=== PATIENT | female | born 1990 | race American Indian/Alaskan Native ===

== ENCOUNTER 2017-09-24 22:06 | Emergency (ER) | payer SELFPAY ==
[2017-09-25] MEDS ORDERED: PERCOCET 5/325 ONE (00:36)
[2017-09-25] MEDS ORDERED: PERCOCET 5/325 PO ONE (00:41)
--- NOTE | 2017-09-25 00:55 | XRay Report ---
FINAL REPORT EXAM: XR HAND 3+V RT HISTORY: Dog bite Rt Hand, Concent signed, get report TECHNIQUE: Three views of the right hand were submitted. FINDINGS: There is soft tissue swelling adjacent to the proximal phalanx of the thumb. There is no evidence of fracture or radiopaque foreign body. The wrist joint is well maintained. IMPRESSION: Soft tissue swelling adjacent to the proximal phalanx of the thumb. No associated fracture.
[2017-09-25 01:18] VITALS: BP 118/77
[2017-09-25] MEDS ORDERED: AUGMENTIN 875 MG PO ONE (01:24)
[2017-09-25] MEDS ORDERED: BOOSTRIX IM ONE (01:24)
--- NOTE | 2017-09-25 01:26 | Emergency Department Report ---
ED Animal Bite HPI - General Chief Complaint: Animal Bite Stated Complaint: DOG BITE Time Seen by Provider: 09/25/17 01:21 Source: patient Mode of arrival: Ambulatory Limitations: No Limitations - History of Present Illness Initial Comments: 27-year-old -[place]an female comes in status post bitten by a pit bull. The dog was a friend's. The friend reports that the dog is up-to-date on all vaccines. Patient does not recall when the last time she had a tetanus shot. Patient reports her pain a 10 out of 10. Patient has no past medical history currently taking no medication has no known drug allergies. MD Complaint: animal bite -: This evening Right: Hand (webspace between the first and thumb digit, ring finger) Animal: dog Description: household pet Mechanism: bite Pain Description: sharp, burning Severity scale (0 -10): 10 Context: unprovoked Associated Symptoms: erythema, bleeding - Related Data Patient Tetanus UTD: No Previous Rx's Medication Instructions Recorded Last Taken Type Azithromycin [Zithromax TAB] 500 mg PO ONCE #2 tablet 05/07/13 Unknown Rx Ciprofloxacin HCl [Cipro] 500 mg PO Q12H #20 tab 05/07/13 Unknown Rx Fluconazole [Diflucan] 150 mg PO QDAY #1 tablet 05/07/13 Unknown Rx Amoxicillin/K Clav Tab [Augmentin 1 each PO BID #20 tablet 09/25/17 Unknown Rx 875MG TAB] HYDROcodone/ACETAMINOPHEN [[place] 1 each PO Q6H PRN #12 tablet 09/25/17 Unknown Rx 7.5-325 Tablet] Allergies Allergy/AdvReac Type Severity Reaction Status Date / Time No Known Allergies Allergy Unverified 05/07/13 11:49 ED Review of Systems ROS: Stated complaint: DOG BITE Other details as noted in HPI Constitutional: denies: chills, fever Eyes: denies: eye pain, eye discharge, vision change ENT: denies: ear pain, throat pain Respiratory: denies: cough, shortness of breath, wheezing Cardiovascular: denies: chest pain, palpitations Endocrine: no symptoms reported Gastrointestinal: denies: abdominal pain, nausea, diarrhea Genitourinary: denies: urgency, dysuria, discharge Musculoskeletal: denies: back pain, joint swelling, arthralgia Skin: other (laceration to the right hand) Neurological: denies: headache, weakness, paresthesias Psychiatric: denies: anxiety, depression Hematological/Lymphatic: denies: easy bleeding, easy bruising ED Past Medical Hx - Past Medical History Previous Medical History?: No - Surgical History Past Surgical History?: No - Social History Smoking Status: Current Every Day Smoker Substance Use Type: Alcohol - Medications Home Medications: Home Medications Medication Instructions Recorded Confirmed Last Taken Type Azithromycin [Zithromax TAB] 500 mg PO ONCE #2 tablet 05/07/13 Unknown Rx Ciprofloxacin HCl [Cipro] 500 mg PO Q12H #20 tab 05/07/13 Unknown Rx Fluconazole [Diflucan] 150 mg PO QDAY #1 tablet 05/07/13 Unknown Rx Amoxicillin/K Clav Tab [Augmentin 1 each PO BID #20 tablet 09/25/17 Unknown Rx 875MG TAB] HYDROcodone/ACETAMINOPHEN [[place] 1 each PO Q6H PRN #12 tablet 09/25/17 Unknown Rx 7.5-325 Tablet] ED Physical Exam - General Limitations: No Limitations General appearance: alert, in no apparent distress - Head Head exam: Present: atraumatic, normocephalic - Eye Eye exam: Present: normal appearance - ENT ENT exam: Present: mucous membranes moist - Neck Neck exam: Present: normal inspection - Respiratory Respiratory exam: Present: normal lung sounds bilaterally. Absent: respiratory distress - Cardiovascular Cardiovascular Exam: Present: regular rate, normal rhythm. Absent: systolic murmur, diastolic murmur, rubs, gallop - GI/Abdominal GI/Abdominal exam: Present: soft, normal bowel sounds - Expanded Upper Extremity Exam Right Shoulder Exam: Present: normal inspection, full ROM Upper Arm exam: Present: normal inspection, full ROM Elbow exam: Present: normal inspection, full ROM Forearm Wrist exam: Present: normal inspection, full ROM Hand Wrist exam: Present: laceration (webspace between the first and thumb digit , third digit proximal) Neuro motor exam: Present: thumb opposition intact, thumb IP flexion intact, thumb adduction intact, fingers 2-5 abduction intact Neurosensory exam: Present: radial nerve intact, ulnar nerve intact, median nerve intact Vascular: Present: normal capillary refill. Absent: vascular compromise - Back Exam Back exam: Present: normal inspection - Neurological Exam Neurological exam: Present: alert, oriented X3 - Psychiatric Psychiatric exam: Present: normal affect, normal mood - Skin Skin exam: Present: warm, dry, normal color, other (7 cm laceration between the web space of the first and thumb digit as well as the 2 cm laceration to the right third digit and puncture wound to the dorsum metacarpal). Absent: rash ED Course Vital Signs 09/24/17 09/24/17 09/25/17 22:11 22:19 01:17 Temperature 32.1 F L 98.6 F 97.9 F Pulse Rate 83 83 88 Respiratory 16 18 18 Rate Blood Pressure 123/63 123/63 Blood Pressure 118/77 [Right] O2 Sat by Pulse 98 100 100 Oximetry - Reevaluation(s) Reevaluation #2: 09/25/17 01:23 IMPRESSION: Soft tissue swelling adjacent to the proximal phalanx of the thumb. No associated fracture. Critical care attestation.: If time is entered above; I have spent that time in minutes in the direct care of this critically ill patient, excluding procedure time. ED Disposition Clinical Impression: Dog bite of hand Qualifiers: Encounter type: initial encounter Laterality: right Qualified Code(s): S61.451A - Open bite of right hand, initial encounter; W54.0XXA - Bitten by dog , initial encounter Disposition: DC-01 TO HOME OR SELFCARE Is pt being admited?: No Does the pt Need Aspirin: No Condition: Stable Additional Instructions: Complete antibiotics as prescribed. Take pain medication as needed. Dressing changes daily. Return to the emergency room for suture removal 7-10 days. Follow up with her primary care provider if symptoms persist or gets worse. Prescriptions: Amoxicillin/K Clav Tab [Augmentin 875MG TAB] 1 each PO BID #20 tablet HYDROcodone/ACETAMINOPHEN [[place] 7.5-325 Tablet] 1 each PO Q6H PRN #12 tablet PRN Reason: Pain Referrals: CHLOE OTT MD [Primary Care Provider] - 3-5 Days Forms: Work/School Release Form(ED), Accompanied Note
== END 2017-09-25 02:39 | disposition home or self-care (01) ==
LOC: ED 22:06
DX: S61.451A Open bite of right hand, initial encounter (principal); F17.200 Nicotine dependence, unspecified, uncomplicated; W54.0XXA Bitten by dog, initial encounter; Y93.89 Activity, other specified; Y92.89 Other specified places as the place of occurrence of the external cause; Y99.8 Other external cause status
CPT/HCPCS: 90471; 90715; 99283

== ENCOUNTER 2018-11-23 13:49 | Emergency (ER) | payer OTHER ==
--- NOTE | 2018-11-23 13:56 | Emergency Department Report ---
Blank Doc - Documentation Documentation: This is a 28-year-old female that presents with sore throat. This initial assessment/diagnostic orders/clinical plan/treatment(s) is/are subject to change based on patient's health status, clinical progression and re- assessment by fellow clinical providers in the ED. Further treatment and workup at subsequent clinical providers discretion. Patient/guardians urged not to elope from the ED as their condition may be serious if not clinically assessed and managed. Initial orders include: 1- Patient sent to [facility] for further evaluation and treatment 2- strep swab
[2018-11-23 13:58] VITALS: BP 118/70
--- NOTE | 2018-11-23 14:37 | Emergency Department Report ---
HPI - General Chief Complaint: Sore Throat Time Seen by Provider: 11/23/18 13:56 - HPI HPI: 28-year-old -[place]ic female presents to the emergency department with a 3 day history of progressively worsening sore throat. At first she says that she thought it was just dry but then the pain increased and she started having some soreness to the neck. She denies any fever, chills, nausea, vomiting, voice change. She has not taken anything for her symptoms prior to presentation. No recent travel or sick contacts at home. She does not have a primary care physician. ED Past Medical Hx - Past Medical History Previous Medical History?: No - Surgical History Past Surgical History?: No - Social History Smoking Status: Current Every Day Smoker Substance Use Type: Alcohol - Medications Home Medications: Home Medications Medication Instructions Recorded Confirmed Last Taken Type Azithromycin [Zithromax TAB] 500 mg PO ONCE #2 tablet 05/07/13 Unknown Rx Ciprofloxacin HCl [Cipro] 500 mg PO Q12H #20 tab 05/07/13 Unknown Rx Fluconazole [Diflucan] 150 mg PO QDAY #1 tablet 05/07/13 Unknown Rx HYDROcodone/ACETAMINOPHEN [[place] 1 each PO Q6H PRN #12 tablet 09/25/17 Unknown Rx 7.5-325 Tablet] Amoxicillin/K Clav Tab [Augmentin 1 each PO BID #20 tablet 11/23/18 Unknown Rx 875MG TAB] ED Review of Systems ROS: Stated complaint: SORE THROAT Other details as noted in HPI Comment: All other systems reviewed and negative Constitutional: denies: chills, fever Eyes: denies: eye pain, vision change ENT: throat pain. denies: ear pain Respiratory: denies: cough, shortness of breath Cardiovascular: denies: chest pain, palpitations Gastrointestinal: denies: abdominal pain, vomiting Genitourinary: denies: dysuria, discharge Musculoskeletal: denies: back pain, arthralgia Skin: denies: rash, lesions Neurological: denies: headache, weakness Physical Exam - Physical Exam Vital Signs: Vital Signs 11/23/18 13:56 Temperature 98.6 F Pulse Rate 89 Respiratory 18 Rate Blood Pressure 118/70 [Right] O2 Sat by Pulse 100 Oximetry Physical Exam: GENERAL: The patient is well-developed well-nourished. HENT: Normocephalic. Atraumatic. Patient has moist mucous membranes. Patient has bilateral tonsillar hypertrophy and erythema. No visible exudates. No drooling or trismus. The submental compartment is soft and does not appear consistent with any Ludwigs angina. EYES: Extraocular motions are intact. Pupils equal reactive to light bilaterally. NECK: Supple. Trachea is midline. CHEST/LUNGS: Clear to auscultation. There is no respiratory distress noted. HEART/CARDIOVASCULAR: Regular. There is no tachycardia. There is no murmur. ABDOMEN: There is no abdominal distention. SKIN: Skin is warm and dry. NEURO: The patient is awake, alert, and oriented. The patient is cooperative. The patient has no focal neurologic deficits. The patient has normal speech. MUSCULOSKELETAL: There is no tenderness or deformity. There is no evidence of acute injury. ED Course Vital Signs 11/23/18 13:56 Temperature 98.6 F Pulse Rate 89 Respiratory 18 Rate Blood Pressure 118/70 [Right] O2 Sat by Pulse 100 Oximetry ED Medical Decision Making - Medical Decision Making Patient has a 3 day history of progressive worsening sore throat. Positive on rapid strep test. She will be placed on antibiotics. Vital signs stable, being afebrile. She will return to the ER with any worsening of her symptoms or any acute distress. - Differential Diagnosis strep pharyngitis, viral pharyngitis, postnasal drip Critical Care Time: No Critical care attestation.: If time is entered above; I have spent that time in minutes in the direct care of this critically ill patient, excluding procedure time. ED Disposition Clinical Impression: Strep throat Disposition: DC-01 TO HOME OR SELFCARE Is pt being admited?: No Condition: Stable Instructions: Strep Throat (ED) Additional Instructions: Please take the antibiotics as prescribed. Follow up with a primary care physician in the next few days. Return to the emergency Department with any worsening of your symptoms or any acute distress. Make sure that you do a lot of hand washing. Do not share any food or drink to avoid spreading infection. Prescriptions: Amoxicillin/K Clav Tab [Augmentin 875MG TAB] 1 each PO BID #20 tablet Referrals: KATELIN PAEZ MD [Staff Physician] - 3-[address] [facility] [Outside] - 3-5 Days Forms: Work/School Release Form(ED) Time of Disposition: 14:37
== END 2018-11-23 14:53 | disposition home or self-care (01) ==
LOC: ED 13:49
DX: J02.0 Streptococcal pharyngitis (principal); F17.200 Nicotine dependence, unspecified, uncomplicated
CPT/HCPCS: 87430

== ENCOUNTER 2018-12-23 07:03 | Emergency (ER) | payer OTHER ==
[2018-12-23 07:16] VITALS: BP 114/71
[2018-12-23] MEDS ORDERED: TORADOL IM ONE (07:45)
[2018-12-23] MEDS ORDERED: BICILLIN L-A IM ONE (07:46)
--- NOTE | 2018-12-23 07:50 | Emergency Department Report ---
ED ENT HPI - General Chief complaint: Sore Throat Stated complaint: SORE THROAT Time Seen by Provider: 12/23/18 07:44 Source: patient Mode of arrival: Ambulatory Limitations: No Limitations - History of Present Illness Initial comments: 28-year-old -Thai female presents to the emergency room complaining of sore throat for 2-3 days denies any recent fevers doesn't report nausea but no vomiting. She reports a low-grade fever. MD complaint: sore throat, difficulty swallowing Onset/Timin -: days(s) Location: throat - Related Data Previous Rx's Medication Instructions Recorded Last Taken Type Azithromycin [Zithromax TAB] 500 mg PO ONCE #2 tablet 05/07/13 Unknown Rx Ciprofloxacin HCl [Cipro] 500 mg PO Q12H #20 tab 05/07/13 Unknown Rx Fluconazole [Diflucan] 150 mg PO QDAY #1 tablet 05/07/13 Unknown Rx HYDROcodone/ACETAMINOPHEN [[place] 1 each PO Q6H PRN #12 tablet 09/25/17 Unknown Rx 7.5-325 Tablet] Amoxicillin/K Clav Tab [Augmentin 1 each PO BID #20 tablet 11/23/18 Unknown Rx 875MG TAB] Ibuprofen [Motrin 800 MG tab] 800 mg PO Q8HR PRN #15 tablet 12/23/18 Unknown Rx Allergies Allergy/AdvReac Type Severity Reaction Status Date / Time No Known Allergies Allergy Verified 11/23/18 13:58 ED Dental HPI - General Chief complaint: Sore Throat Stated complaint: SORE THROAT Time Seen by Provider: 12/23/18 07:44 Source: patient Mode of arrival: Ambulatory Limitations: No Limitations - Related Data Previous Rx's Medication Instructions Recorded Last Taken Type Azithromycin [Zithromax TAB] 500 mg PO ONCE #2 tablet 05/07/13 Unknown Rx Ciprofloxacin HCl [Cipro] 500 mg PO Q12H #20 tab 05/07/13 Unknown Rx Fluconazole [Diflucan] 150 mg PO QDAY #1 tablet 05/07/13 Unknown Rx HYDROcodone/ACETAMINOPHEN [[place] 1 each PO Q6H PRN #12 tablet 09/25/17 Unknown Rx 7.5-325 Tablet] Amoxicillin/K Clav Tab [Augmentin 1 each PO BID #20 tablet 11/23/18 Unknown Rx 875MG TAB] Ibuprofen [Motrin 800 MG tab] 800 mg PO Q8HR PRN #15 tablet 12/23/18 Unknown Rx Allergies Allergy/AdvReac Type Severity Reaction Status Date / Time No Known Allergies Allergy Verified 11/23/18 13:58 ED Review of Systems ROS: Stated complaint: SORE THROAT Other details as noted in HPI Comment: All other systems reviewed and negative ENT: dental pain ED Past Medical Hx - Past Medical History Previous Medical History?: No - Surgical History Past Surgical History?: No - Social History Smoking Status: Current Every Day Smoker Substance Use Type: Alcohol - Medications Home Medications: Home Medications Medication Instructions Recorded Confirmed Last Taken Type Azithromycin [Zithromax TAB] 500 mg PO ONCE #2 tablet 05/07/13 Unknown Rx Ciprofloxacin HCl [Cipro] 500 mg PO Q12H #20 tab 05/07/13 Unknown Rx Fluconazole [Diflucan] 150 mg PO QDAY #1 tablet 05/07/13 Unknown Rx HYDROcodone/ACETAMINOPHEN [[place] 1 each PO Q6H PRN #12 tablet 09/25/17 Unknown Rx 7.5-325 Tablet] Amoxicillin/K Clav Tab [Augmentin 1 each PO BID #20 tablet 11/23/18 Unknown Rx 875MG TAB] Ibuprofen [Motrin 800 MG tab] 800 mg PO Q8HR PRN #15 tablet 12/23/18 Unknown Rx ED Physical Exam - General Limitations: No Limitations General appearance: alert, in no apparent distress - Head Head exam: Present: atraumatic, normocephalic - Eye Eye exam: Present: normal appearance - Expanded ENT Exam Expanded Throat exam: Positive: tonsillar erythema, tonsillomegaly, tonsillar exudate - Neck Neck exam: Present: tenderness, lymphadenopathy - Cardiovascular Cardiovascular Exam: Present: regular rate, normal rhythm. Absent: systolic murmur, diastolic murmur, rubs, gallop - GI/Abdominal GI/Abdominal exam: Present: soft, normal bowel sounds - Extremities Exam Extremities exam: Present: normal inspection - Back Exam Back exam: Present: normal inspection - Neurological Exam Neurological exam: Present: alert, oriented X3 - Psychiatric Psychiatric exam: Present: normal affect, normal mood - Skin Skin exam: Present: warm, dry, intact, normal color. Absent: rash ED Course Vital Signs 12/23/18 07:14 Temperature 98.7 F Pulse Rate 98 H Respiratory 20 Rate Blood Pressure 114/71 O2 Sat by Pulse 100 Oximetry ED Medical Decision Making - Medical Decision Making 28-year-old female comes in for sore throat. Patient is given a penicillin IM injection with Toradol 30 mg for pain management. Patient be discharged home on ibuprofen. She is to follow-up with the primary care provider for symptoms persist or gets worse. Critical care attestation.: If time is entered above; I have spent that time in minutes in the direct care of this critically ill patient, excluding procedure time. ED Disposition Clinical Impression: Strep throat Disposition: DC-01 TO HOME OR SELFCARE Is pt being admited?: No Does the pt Need Aspirin: No Condition: Stable Instructions: Strep Throat (ED) Additional Instructions: Pain medication as needed. Follow up with the primary care provider if his symptoms persist or gets worse. Prescriptions: Ibuprofen [Motrin 800 MG tab] 800 mg PO Q8HR PRN #15 tablet PRN Reason: Pain , Severe (7-10) Forms: Work/School Release Form(ED)
== END 2018-12-23 08:32 | disposition home or self-care (01) ==
LOC: ED 07:03
DX: J02.0 Streptococcal pharyngitis (principal); F17.200 Nicotine dependence, unspecified, uncomplicated; Z79.899 Other long term (current) drug therapy
CPT/HCPCS: 96372; 99282; J0561; J1885

== ENCOUNTER 2019-04-23 09:35 | Emergency (ER) | payer OTHER ==
[2019-04-23 09:55] VITALS: BP 129/60
[2019-04-23 11:25] LABS: Bacteria,Urine 1+ /HPF (Negative); Bilirubin,Urine NEG (Negative); Blood,Urine NEG (Negative); Color,Urine Yellow (Yellow); Protein,Urine <15 mg/dL mg/dL (Negative); Urobilinogen,Urine < 2.0 mg/dL (<2.0)
[2019-04-23 11:26] LABS: HCG Qualitative,Urine Negative (Negative)
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
== END 2019-04-23 12:56 | disposition home or self-care (01) ==
LOC: ED 09:35
DX: M54.5 Low back pain (principal); Z79.899 Other long term (current) drug therapy; V49.59XA Passenger injured in collision with other motor vehicles in traffic accident, initial encounter; Y93.89 Activity, other specified; Y92.410 Unspecified street and highway as the place of occurrence of the external cause; Y99.8 Other external cause status
CPT/HCPCS: 72100; 81001; 81025